=== PATIENT | male | born 1965 | race Caucasian/White ===

== ENCOUNTER → 2017-06-24 | Outpatient (CLI) | payer OTHER ==
[2015-08-22 16:50] VITALS: BP 160/85
[~2017-06-24] MED LIST: ADVIL 200MG TA200 MG PO; CEPHALEXIN500 M1 PO; COUGH & COLD1 TAB; LORTAB 5/500 501 TAB PO
== END ==
LOC: LAB 09:01
DX: R21 Rash and other nonspecific skin eruption (principal); M79.1 Myalgia

== ENCOUNTER 2021-01-28 07:48 | Inpatient (IN) | payer OTHER ==
[~2021-01-28] VITALS: Ht 175.3 cm; Wt 94.2 kg
[2021-01-28 08:39] LABS: BASO # 0.06 K/mm3 (0.02-0.10); EOS # 0.16 K/mm3 (0.04-0.40); EOS % 1.2 % (0.0-4.0); HEMOGLOBIN 15.5 g/dL (13.5-18.0); LYMPH# 2.84 K/mm3 (1.50-4.00); MEAN CELL VOLUME 99 fl (78-100); MEAN CORPUSCULAR HEMOGLOBIN 33 pg (27-31); MEAN CORPUSCULAR HGB CONC 33 g/dL (33-37); MEAN PLATELET VOLUME 10.1 fl (7.4-10.4); MONO # 1.29 K/mm3 (0.20-0.80); NEU # 9.29 K/mm3 (1.40-6.50); PLATELET COUNT 327 K/mm3 (130-400); RED BLOOD COUNT 4.75 M/mm3 (4.20-5.60); RED CELL DISTRIBUTION WIDTH 12.1 % (11.5-14.5); WHITE BLOOD COUNT 13.7 K/mm3 (4.8-10.8)
[2021-01-28 08:47] LABS: ALBUMIN 3.9 g/dL (3.5-5.0); POTASSIUM 4.5 mmol/L (3.5-5.1)
[2021-01-28 08:48] LABS: CALCIUM 9.3 mg/dL (8.3-10.5)
[2021-01-28 08:50] LABS: TOTAL PROTEIN 6.3 g/dL (6.4-8.3)
[2021-01-28 08:51] LABS: TOTAL BILIRUBIN 0.4 mg/dL (0.2-1.2)
[2021-01-28 09:02] LABS: D-DIMER 0.54 mg/L FEU (0.15-0.50)
[2021-01-28 09:48] LABS: URINE APPEARANCE CLEAR; URINE BILIRUBIN NEGATIVE (NEGATIVE); URINE BLOOD NEGATIVE (NEGATIVE); URINE COLOR YELLOW; URINE GLUCOSE NEGATIVE (NEGATIVE); URINE KETONE NEGATIVE (NEGATIVE); URINE LEUKOCYTE ESTERASE NEGATIVE (NEGATIVE); URINE MUCUS PRESENT (NOT PRESENT); URINE NITRATE NEGATIVE (NEGATIVE); URINE PROTEIN(semi-quant) TRACE mg/dL (NEGATIVE); URINE UROBILINOGEN NORMAL (NORMAL); URINE WBC 0-1 /hpf (0-3)
[2021-01-28 15:01] LABS: PARTIAL THROMBOPLASTIN TIME 24.1 SECONDS (21.0-32.0); PROTHROMBIN TIME 10.4 SECONDS (9.0-12.0)
[2021-01-28 17:30] VITALS: BP 123/73
[2021-01-28 21:54] VITALS: BP 125/75
--- NOTE | 2021-01-28 22:00 | NUR ---
Result of PTT and Troponin reported to Dr. Gil. Orders to increas by 1.5ml/hr increasing total to 11.5ml/hr. Next lab scheduled for 299.
[2021-01-29 02:00] VITALS: BP 130/65
--- NOTE | 2021-01-29 03:36 | NUR ---
Reported results of PTT. Recived orders to increase rate of Heprin drip by 1.5ml for total 13ml/hr. Next PTT and Troponin lab draw scheduled for 0900
[2021-01-29 06:01] VITALS: BP 116/68
[2021-01-29 09:36] VITALS: BP 124/80
--- NOTE | 2021-01-29 09:42 | NUR ---
Called [facility] spoke with Manager Metal Macrina. Advised that we are waiting on ability to transfer. Pt is on Heprin gtt.
--- NOTE | 2021-01-29 10:20 | NUR ---
Dr. Ling at bedside.
[2021-01-29 13:30] VITALS: BP 121/74
--- NOTE | 2021-01-29 15:50 | NUR ---
Dr. Ling at bedside.
[2021-01-29 17:40] VITALS: BP 135/72
--- NOTE | 2021-01-29 19:00 | NUR ---
Report received from Jenn DUARTE.
--- NOTE | 2021-01-29 21:10 | NUR ---
Lab into draw PTT. Patient has denied pain. Pleasant, alert and oriented x 4. Rests in bed watching TV. Ativan given to aid with rest. Snack of 2 puddings and jello.
[2021-01-29 21:27] VITALS: BP 124/78
--- NOTE | 2021-01-30 03:00 | NUR ---
Patient resting in bed awake. Denies pain. Alert and oriented x 4. States he wakes up at this time every morning.
[2021-01-30 05:41] VITALS: BP 145/86
[2021-01-30 08:41] LABS: HEMATOCRIT 49.7 % (42.0-52.0); HEMOGLOBIN 16.4 g/dL (13.5-18.0); MEAN PLATELET VOLUME 9.6 fl (7.4-10.4); RED BLOOD COUNT 5.02 M/mm3 (4.20-5.60); RED CELL DISTRIBUTION WIDTH 11.7 % (11.5-14.5); WHITE BLOOD COUNT 11.4 K/mm3 (4.8-10.8)
--- NOTE | 2021-01-30 09:24 | NUR ---
Patient standing at end of bed watching TV. Eager to go home. A&Ox4, RA, no c/o pain or discomfort. Requesting to go home today. Reports he slept well last night. Call light within reach.
[2021-01-30 10:00] VITALS: BP 131/81
[2021-01-30] MEDS ORDERED: CLOPIDOGREL PO (12:16)
[2021-01-30] MEDS ORDERED: ZESTRIL5 M1 PO (12:16)
[2021-01-30] MEDS ORDERED: METOPROLOL SUCC25 M1 PO (12:16)
[2021-01-30] MEDS ORDERED: VAZALORE81 MG PO (12:16)
[2021-01-30] MEDS ORDERED: ATORVASTATIN CA40 MG PO (12:16)
[2021-01-30] MEDS ORDERED: HYDROXYZINE HYD50 M1 PO (13:20)
[2021-01-30 13:39] VITALS: BP 146/83
--- NOTE | 2021-01-30 14:30 | NUR ---
Stopped Heparin gtt per LUZ MARINA Chris, TOOLS ADMINISTRATOR
--- NOTE | 2021-01-30 16:33 | NUR ---
Patient discharged home by STEFANO, Elena&Ox4, RA no c/o pain or discomfort. Discharge instructions reviewed with patient. All questions and concerns addressed at this time. All personal belongings sent with patient. F/u appointments scheduled and reviewed with patient.
== END 2021-01-30 16:35 | disposition home or self-care (01) | DRG 282 ==
LOC: ED 07:48 → MED/SURG 14:04
PROVIDERS: ADMIT Family Medicine
DX: I21.4 Non-ST elevation (NSTEMI) myocardial infarction (principal); F41.9 Anxiety disorder, unspecified; S46.091D Other injury of muscle(s) and tendon(s) of the rotator cuff of right shoulder, subsequent encounter; X58.XXXD Exposure to other specified factors, subsequent encounter; Z20.822 Contact with and (suspected) exposure to COVID-19
CPT/HCPCS: J1644; J2060; J2270; Q9967

== ENCOUNTER 2021-05-08 13:58 | Outpatient (RCR) | payer OTHER ==
[~2021-05-08 13:58] MED LIST changes: +ATORVASTATIN CA40 MG PO; +CLOPIDOGREL PO; +HYDROXYZINE HYD50 M1 PO; +METOPROLOL SUCC25 M1 PO; +VAZALORE81 MG PO; +ZESTRIL5 M1 PO
== END 2021-05-10 | disposition home or self-care (01) ==
LOC: PT
DX: S46.011D Strain of muscle(s) and tendon(s) of the rotator cuff of right shoulder, subsequent encounter (principal); X58.XXXD Exposure to other specified factors, subsequent encounter

== ENCOUNTER 2021-05-15 07:58 | Outpatient (RCR) | payer OTHER | END 2021-06-09 | disposition home or self-care (01) | LOC: PT | DX: S46.011D Strain of muscle(s) and tendon(s) of the rotator cuff of right shoulder, subsequent encounter (principal); X58.XXXD Exposure to other specified factors, subsequent encounter ==

== ENCOUNTER → 2021-06-07 | Day surgery (SDC) | payer OTHER | END | disposition home or self-care (01) | LOC: MSO 07:19 | DX: D12.2 Benign neoplasm of ascending colon (principal); K64.1 Second degree hemorrhoids; E66.9 Obesity, unspecified; F17.210 Nicotine dependence, cigarettes, uncomplicated | CPT/HCPCS: 00811; J2704; J3010; J7120 ==

== ENCOUNTER 2021-06-12 07:59 | Outpatient (RCR) | payer OTHER | END 2021-07-10 | disposition home or self-care (01) | LOC: PT | DX: S46.011D Strain of muscle(s) and tendon(s) of the rotator cuff of right shoulder, subsequent encounter (principal); X58.XXXD Exposure to other specified factors, subsequent encounter ==

== ENCOUNTER 2021-07-11 11:34 | Outpatient (RCR) | payer OTHER | END 2021-08-09 | disposition still patient (30) | LOC: PT | DX: S46.011D Strain of muscle(s) and tendon(s) of the rotator cuff of right shoulder, subsequent encounter (principal); X58.XXXD Exposure to other specified factors, subsequent encounter ==

== ENCOUNTER 2021-08-10 08:00 | Outpatient (RCR) | payer OTHER | END 2021-08-22 17:00 | disposition home or self-care (01) | LOC: PT 08:00 | DX: S46.011D Strain of muscle(s) and tendon(s) of the rotator cuff of right shoulder, subsequent encounter (principal) ==

== ENCOUNTER 2024-01-21 09:42 | Emergency (ER) | payer OTHER ==
[~2024-01-21] VITALS: Ht 177.8 cm; Wt 100.9 kg
[2024-01-21] MEDS ORDERED: Tdap Vaccine 0.5 ML SYRINGE IM ONE (10:00)
[2024-01-21 10:53] VITALS: BP 144/89
== END 2024-01-21 11:08 | disposition home or self-care (01) ==
LOC: ED 09:42
DX: S61.411A Laceration without foreign body of right hand, initial encounter (principal); F17.210 Nicotine dependence, cigarettes, uncomplicated; F17.290 Nicotine dependence, other tobacco product, uncomplicated; Z23 Encounter for immunization; W23.1XXA Caught, crushed, jammed, or pinched between stationary objects, initial encounter; Y93.89 Activity, other specified
CPT/HCPCS: 90715